=== PATIENT | male | born 1975 | race Caucasian/White ===

== ENCOUNTER → 2016-11-06 | Outpatient (CLI) | payer MEDICARE, OTHER ==
--- NOTE | 2016-11-06 16:22 | US ---
EXAMINATION TYPE: US kidneys/renal and bladder DATE OF EXAM: 11/06/2016 1:08 PM COMPARISON: NONE CLINICAL HISTORY: 41-year-old male D49.519 KIDNEY TUMOR, Further patient history: Patient states that previous ultrasound found start shaped mass on his kidne y, he isn't sure which. TECHNIQUE: Multiple sonographic images of the kidneys and bladder were obtained. FINDINGS: Right Kidney: 10.3 x 4.9 x 5.0 cm without hydronephrosis. Left Kidney: 9.7 x 5.5 x 5.3 cm without hydronephrosis. No gross abnormality of the urine distended bladder. SOLAR INSTALLER NOTES: Unable to visualize mass on either kidney with multiple view and second check IMPRESSION: No hydronephrosis. No sonographically apparent renal mass. The patient's previous exam is not availab le for review. Further follow-up as clinically indicated.
== END ==
LOC: RADUSWWP 11:51
PROVIDERS: ATTEND Family Medicine
DX: D49.519 Neoplasm of unspecified behavior of unspecified kidney (principal)
CPT/HCPCS: 76770

== ENCOUNTER 2017-03-12 02:37 | Emergency (ER) | payer MEDICARE, OTHER ==
[2017-03-12] MEDS ORDERED: MAG HYDROX/AL HYDROX/SIMETH 30 ML, HYOSCYAMINE ELIXIR 10 ML, CIMETIDINE HCL 300 MG, LID... PO STA ×4 (03:19)
[2017-03-12 03:30] LABS: Basophils # (A) 0.1 k/uL (0-0.2); Basophils % (A) 0 %; CH 30.1; CHCM 34.6; Eosinophils # (A) 0.3 k/uL (0-0.7); Eosinophils % (A) 3 %; HCT 48.8 % (39.0-53.0); HDW 2.36; HGB 16.3 gm/dL (13.0-17.5); Luc # (Auto) 0.15; Luc % (Auto) 1; Lymphocytes # (A) 3.3 k/uL (1.0-4.8); Lymphocytes % (A) 29 %; MCH 29.1 pg (25.0-35.0); MCHC 33.4 g/dL (31.0-37.0); MCV 87.1 fL (80.0-100.0); Mean Platelet Volume 6.8; Monocytes # (A) 0.5 k/uL (0-1.0); Monocytes % (A) 4 %; Neutrophils % (A) 62 %; RDW 13.6 % (11.5-15.5); WBC 11.2 k/uL (3.8-10.6); WBC (Perox) 10.93
[2017-03-12 03:41] LABS: ALT 76 U/L (21-72); AST 54 U/L (17-59); Alkaline Phosphatase 118 U/L (38-126); Amylase 61 U/L (30-110); Anion Gap 12 mmol/L; Blood Urea Nitrogen 10 mg/dL (9-20); Calcium 9.5 mg/dL (8.4-10.2); Carbon Dioxide 25 mmol/L (22-30); Chloride 104 mmol/L (98-107); Glucose 106 mg/dL (74-99); Magnesium 1.8 mg/dL (1.6-2.3); Non-African American GFR(MDRD) >60 (>60 ml/min/1.73 sqM); Potassium 3.7 mmol/L (3.5-5.1); Sodium 141 mmol/L (137-145); Total Bilirubin 0.4 mg/dL (0.2-1.3); Total Protein 6.7 g/dL (6.3-8.2)
[2017-03-12 03:49] LABS: INR 0.9 (<1.2); Partial Thromboplastin Time 24.9 sec (22.0-30.0); Prothrombin Time 9.7 sec (9.0-12.0)
[2017-03-12 03:50] LABS: Creatine Kinase 103 U/L (55-170)
[2017-03-12 04:03] LABS: Creatine Kinase MB 1.4 ng/mL (0.0-2.4); Troponin I <0.012 ng/mL (0.000-0.034)
--- NOTE | 2017-03-12 04:07 | XR ---
EXAM: XR Chest, 1 View CLINICAL HISTORY: Reason: chest pain TECHNIQUE: Frontal view of the chest. COMPARISON: No relevant prior studies available. FINDINGS: Lungs: Unremarkable. No consolidation. Pleural space: Unremarkable. No pneumothorax. Heart: Unremarkable. No cardiomegaly. Mediastinum: Unremarkable. Bones/joints: Unremarkable. IMPRESSION: Normal chest x-ray.
--- NOTE | 2017-03-12 04:19 | ED ---
Chest Pain HPI - General Chief Complaint: Chest Pain Stated Complaint: chest pain Time Seen by Provider: 03/12/17 02:47 Source: patient Mode of arrival: wheelchair Limitations: no limitations - History of Present Illness Initial Comments: This patient is a 41-year-old man with history of reflux disease who states that he ran out of his medication and that after he went to sleep she had onset of his symptoms tonight. The patient states that he was lying down and was awakened by burning substernal pain which then became aching. He had some associated nausea. He has not had dyspnea, palpitations, lightheadedness or syncope. No diaphoresis. MD Complaint: chest pain -: hour(s) Onset: awoke with symptoms Pain Location: substernal Pain Radiation: none Severity: severe Quality: other (Burning) Consistency: constant Improves With: nothing Worsens With: nothing Anginal Symptoms: nausea Treatments Prior to Arrival: none - Related Data Home Medications Medication Instructions Recorded Confirmed Aspirin 81 mg PO DAILY 03/12/17 03/12/17 Ranitidine HCl [Zantac] 75 mg PO BID 03/12/17 03/12/17 Rosuvastatin Calcium 5 mg PO 03/12/17 Allergies Allergy/AdvReac Type Severity Reaction Status Date / Time acetaminophen [From Vicodin] Allergy Unknown Verified 03/12/17 02:45 hydrocodone [From Vicodin] Allergy Unknown Verified 03/12/17 02:45 Penicillins Allergy Unknown Verified 03/12/17 02:45 Childhood Review of Systems ROS Statement: Those systems with pertinent positive or pertinent negative responses have been documented in the HPI. ROS Other: All systems not noted in ROS Statement are negative. Constitutional: Denies: fever, chills, weakness Respiratory: Denies: cough, dyspnea, wheezes Cardiovascular: Reports: as per HPI, chest pain. Denies: palpitations, orthopnea, edema, syncope Gastrointestinal: Reports: nausea. Denies: abdominal pain, vomiting, diarrhea, melena, hematochezia Genitourinary: Denies: dysuria, hematuria Musculoskeletal: Denies: back pain Skin: Denies: rash Neurological: Denies: headache, weakness, numbness EKG Findings - EKG Results: EKG: interpreted by MARIAM, sinus rhythm (Rate 84 bpm), normal axis, normal QRS, normal ST/T Past Medical History Past Medical History: Myocardial Infarction ([place]) History of Any Multi-Drug Resistant Organisms: None Reported Past Surgical History: Heart Catheterization With Stent Past Psychological History: No Psychological Hx Reported Smoking Status: Former smoker Past Alcohol Use History: None Reported Past Drug Use History: None Reported General Exam Limitations: no limitations General appearance: alert, in no apparent distress Head exam: Present: atraumatic, normocephalic, normal inspection Eye exam: Present: normal appearance. Absent: scleral icterus, conjunctival injection ENT exam: Present: normal oropharynx Neck exam: Present: normal inspection Respiratory exam: Present: normal lung sounds bilaterally. Absent: respiratory distress, wheezes, rales, rhonchi, chest wall tenderness Cardiovascular Exam: Present: regular rate, normal rhythm, normal heart sounds. Absent: systolic murmur, diastolic murmur, rubs, gallop GI/Abdominal exam: Present: soft. Absent: distended, tenderness, guarding, rebound Extremities exam: Present: normal inspection, normal capillary refill. Absent: pedal edema, calf tenderness Back exam: Present: normal inspection. Absent: CVA tenderness (R), CVA tenderness (L) Skin exam: Present: warm, dry, intact, normal color. Absent: rash Course Vital Signs 03/12/17 03/12/17 03/12/17 02:40 03:38 04:31 Temperature 98.4 F 97.6 F Pulse Rate 87 74 65 Respiratory 18 18 16 Rate Blood Pressure 153/92 128/82 114/74 O2 Sat by Pulse 98 94 L 96 Oximetry Chest Pain [facility] Patient is a 41-year-old man who presents with substernal burning and aching that started after he went to lie down. He did run out of his reflux medications. He had relief of symptoms with the GI cocktail and his workup is negative. He is feeling well and wants go home. I did discuss appropriate follow-up and return parameters. Disposition Clinical Impression: Chest pain, Gastroesophageal reflux disease Disposition: HOME SELF-CARE Condition: Good Instructions: Chest Pain (ED), Gastroesophageal Reflux Disease (ED) Referrals: Lesa Monique MD [Primary Care Provider] - 1-2 days
[2017-03-12 04:32] VITALS: BP 114/74; PULSE 65; RESP 16; TEMP 97.6
== END 2017-03-12 04:33 | disposition home or self-care (01) ==
LOC: EC 02:37
DX: R07.9 Chest pain, unspecified (principal); I25.2 Old myocardial infarction; K21.9 Gastro-esophageal reflux disease without esophagitis; Z87.891 Personal history of nicotine dependence; Z95.5 Presence of coronary angioplasty implant and graft; Z88.0 Allergy status to penicillin; Z88.5 Allergy status to narcotic agent; Z79.82 Long term (current) use of aspirin; Z79.899 Other long term (current) drug therapy
CPT/HCPCS: 36415; 71010; 80053; 82150; 82550; 82553; 83690; 83735; 84484; 85025; 85379; 85610; 85730; 93005; 99285

== ENCOUNTER 2020-12-26 12:35 | Emergency (ER) | payer MEDICARE, OTHER ==
[2020-12-26 12:39] VITALS: BP 131/86; PULSE 74; RESP 18; TEMP 98.4
[2020-12-26] MEDS ORDERED: DIPH,PERTUS(ACELL)TETVAC-LF 0.5 ML VIAL IM ONE (12:52)
[2020-12-26] MEDS ORDERED: BACITRACIN OINT 1 EACH PACKET TOPICAL ONE (12:55)
--- NOTE | 2020-12-26 12:56 | ED ---
Animal Bite HPI - General Chief Complaint: Animal Bite Stated Complaint: Dog Bite Time Seen by Provider: 12/26/20 12:45 Source: patient, RN notes reviewed Mode of arrival: ambulatory Limitations: no limitations - History of Present Illness Initial Comments: 45-year-old male presents emergency from chief complaint of dog bite. Patient states he was bit by his brother's dog. She states this was not a stray dog is unsure when his last tetanus was. He states it is brother it's dog is up-to-date will hold rabies vaccine's point. No paresthesias full range of motion. Patient is small laceration was on Plavix but states bleeding has stopped now. - Related Data Home Medications Medication Instructions Recorded Confirmed Aspirin 81 mg PO DAILY 03/12/17 03/12/17 Rosuvastatin Calcium 5 mg PO 03/12/17 raNITIdine HCL [Zantac] 75 mg PO BID 03/12/17 03/12/17 Previous Rx's Medication Instructions Recorded Doxycycline Monohydrate [Monodox] 100 mg PO Q12HR #20 cap 12/26/20 Allergies Allergy/AdvReac Type Severity Reaction Status Date / Time acetaminophen [From Vicodin] Allergy Unknown Verified 12/26/20 12:40 hydrocodone [From Vicodin] Allergy Unknown Verified 12/26/20 12:40 Penicillins Allergy Unknown Verified 12/26/20 12:40 Childhood Review of Systems ROS Statement: Those systems with pertinent positive or pertinent negative responses have been documented in the HPI. ROS Other: All systems not noted in ROS Statement are negative. Past Medical History Past Medical History: Myocardial Infarction ([place]) History of Any Multi-Drug Resistant Organisms: None Reported Past Surgical History: Heart Catheterization With Stent Past Psychological History: No Psychological Hx Reported Smoking Status: Never smoker Past Alcohol Use History: None Reported Past Drug Use History: None Reported General Exam Limitations: no limitations General appearance: alert, in no apparent distress Respiratory exam: Present: normal lung sounds bilaterally. Absent: respiratory distress, wheezes, rales, rhonchi, stridor Cardiovascular Exam: Present: regular rate, normal rhythm, normal heart sounds. Absent: systolic murmur, diastolic murmur, rubs, gallop, clicks Extremities exam: Present: other (Right hand fifth digit there is small lacerati on nonbleeding full range of motion neurovascular intact) Course Vital Signs 12/26/20 12:37 Temperature 98.4 F Pulse Rate 74 Respiratory 18 Rate Blood Pressure 131/86 O2 Sat by Pulse 99 Oximetry Medical Decision Making - Medical Decision Making I did recommend patient have an x-ray patient refuses. Patient's tetanus is updated. She'll hold rabies vaccines as this is his brother's dog. Patient discharged on doxycycline secondary to patient have an ALLERGY to penicillin products. Disposition Clinical Impression: Dog bite Disposition: HOME SELF-CARE Condition: Stable Instructions (If sedation given, give patient instructions): Animal Bite (ED) Additional Instructions: Please return to the Emergency Department if symptoms worsen or any other concerns. Prescriptions: Doxycycline Monohydrate [Monodox] 100 mg PO Q12HR #20 cap Is patient prescribed a controlled substance at d/c from ED?: No Referrals: Nonstaff,Physician [Primary Care Provider] - 1-2 days Time of Disposition: 12:55
== END 2020-12-26 13:13 | disposition home or self-care (01) ==
LOC: EC 12:35
DX: S61.256A Open bite of right little finger without damage to nail, initial encounter (principal); W54.0XXA Bitten by dog, initial encounter
CPT/HCPCS: 90471; 90715; 99282